=== PATIENT | male | born 1960 | race Caucasian/White ===

== ENCOUNTER → 2024-05-05 06:37 | Outpatient (REF) | payer MEDICARE, SELFPAY | LOC: MRI 3T 06:37 | PROVIDERS: ATTENDING PHYSICIAN Student in an Organized Health Care Education/Training Program | DX: M54.50 Low back pain, unspecified (principal); M79.605 Pain in left leg | CPT/HCPCS: 72148 ==

== ENCOUNTER 2025-06-10 15:41 | Emergency (ER) | payer MEDICARE, SELFPAY ==
[2025-06-10 15:43] VITALS: BP 101/57
[2025-06-10 15:44] VITALS: BP 101/57; BMI 29.3
[2025-06-10 15:47] LABS: Glucose - Point of Care 116 mg/dl (70-99)
[2025-06-10 15:57] LABS: Hematocrit 37.8 % (39.0-52.0); Hemoglobin 13.5 g/dL (13.0-18.0); Mean Corp Hgb Conc. 35.7 g/dL (33.0-37.0); Mean Corpuscular Volume 87.3 fL (80.0-94.0); Nucleated Red Blood Cells % 0 % (-); Platelet Count 223 10^3/uL (130-400); Red Cell Dist. Width 11.6 % (11.5-14.5)
[2025-06-10 16:00] VITALS: BP 103/63
[2025-06-10 16:23] LABS: ALT (SGPT) 27 U/L (0-50); AST (SGOT) 32 U/L (17-59); Albumin 4.1 g/dl (3.5-5.0); Alkaline Phosphatase 74 U/L (38-126); Blood Urea Nitrogen 14 mg/dl (9-20); Calcium 9.4 mg/dl (8.4-10.2); Carbon Dioxide 24 mmol/L (22-30); Chloride 105 mmol/L (98-107); Estimated Creatinine Clearance 86 ml/min; Glucose 116 mg/dl (70-99); Potassium 3.7 mmol/L (3.5-5.1); Sodium 136 mmol/L (135-145); Total Protein 6.8 g/dl (6.3-8.2); Troponin I < 0.012 ng/ml; eGFR > 60.00
[2025-06-10 16:30] VITALS: BP 108/61
[2025-06-10 17:00] VITALS: BP 110/68
--- NOTE | 2025-06-10 17:24 | ED.GENMED ---
History of Present Illness
General
Chief Complaint: Fainting/Passed Out
Source: patient and spouse
Exam Limitations: none
Time Seen by Provider: 06/10/25 16:23
Nursing documentation reviewed up to this point in time: agreed with
History of Present Illness
History of Present Illness:
64-year-old male with no significant chronic medical issues presents to the ER with his for evaluation after syncope and collapse with head strike. Patient reports that he just returned from a trip to [place] and sleep has been poor over the
past 48 hours and so he was very exhausted this morning. He says he had a couple coffee in the morning and went to a movie around noon and had some popcorn but that was all he had to eat today. He said he was hungry but wanted to get a workout
again at the [facility] and so he went for a 25-minute swim after the movie. After his swim he went into the sauna. He has been rehabbing his left knee due to arthritis and decided that because he was alone in the sauna he would do some of his PT
exercises and there. Afterwards he went into the shower and while he was taking a shower he felt lightheaded and passed out. He hit the back of his head on the floor and sustained a laceration. EMS was called to bring him to the hospital. He
says that he did have some transient paresthesias in his extremities but did not have any chest pain, palpitations, shortness of breath and denies any symptoms here in the ER. He says he has some mild pain in his head and neck after the fall as
well as some soreness in his left knee but denies any other acute complaints. He denies any known cardiac history.
Review of Systems
Review of Systems
All Other Systems: ROS reviewed and negative except as documented in HPI and ROS
Constitutional: Denies fever
Respiratory: Denies trouble breathing
Cardiac: Reports syncope; Denies chest pain
ABD/GI: Denies abdominal pain, nausea or vomiting
: Denies flank pain
Musculoskeletal: Reports joint pain and neck pain; Denies back pain
Neurological: Reports headache and other (Transient paresthesias); Denies dizzy, weakness or numbness
Phy Exam
Physical Exam
Physical Exam:
General: Awake, alert, oriented x3; no acute distress
Head: Normocephalic, patient has approximately 3 cm roughly linear laceration on the left occipital scalp
Eyes: Conjunctiva normal, pupils equal round and reactive to light bilaterally
Throat: Airway intact, handling secretions
Neck: Trachea midline, no cervical spine tenderness
Back: Minor abrasion to the right posterior shoulder but no tenderness in this area, no other signs of trauma to the back or flank and no tenderness of the thoracic or lumbar spine
Lungs: Clear to auscultation bilaterally, no wheezing, rales, rhonchi
Heart: Regular rate and rhythm, no murmurs, gallops, or rubs; no chest wall tenderness
Abd: Soft, non distended, nontender
Neuro: Cranial nerves grossly intact, speech fluid, motor and sensory grossly intact
Extremities: Patient has some mild swelling and tenderness of the lateral and medial joint line in the left knee but no instability, good range of motion; rest extremities are atraumatic
Scores
Heart Failure Risk
Heart Failure Risk Score: Not Applicable
Heart Score for Chest Pain Patients
STEMI patient?: Not applicable
Withdrawal Assessment of Alcohol
Withdrawal Assessment Completed?: Not applicable
Course
Orders/Labs/Results
Orders:
Orders
06/10/25 15:48
Electrocardiogram (*1) Urgent
Reason for Study: Syncope
EKG- Treatment ONCE
06/10/25 15:49
CMP [Comprehensive Metabolic Panel] Urgent
Complete Blood Count/With Diff Urgent
Troponin I Urgent
06/10/25 17:23
CT Cervical Spine W/o Iv Contr Urgent
Comment:
Reason For Exam: fall with headstrike, neck pain
CT Head W/o Iv Contrast Urgent
Comment:
Reason For Exam: syncope and collapse with occiptal headstrike
CR Knee - Left 4 Or More View* Urgent
Comment:
Reason For Exam: left knee pain s/p fall
06/10/25 17:24
0.9% Sodium Chloride 500 ml [Nss] 500 ml IV BOLUS
06/10/25 17:33
Lidocaine/Epinephrine/Tetracai [Let Topical Anesthetic Gel] 3 ml .ROUTE .STK-MED ONE
06/10/25 17:34
Lidocaine/Epinephrine/Tetracai [Let Topical Anesthetic Gel] 3 ml TOPICAL NOW STA
Abnormal Lab Results
06/10/25 06/10/25
15:46 15:49
RBC 4.33 L 10^6/uL
(4.70-6.10)
Hct 37.8 L %
(39.0-52.0)
MCH 31.2 H pg
(27.0-31.0)
MPV 10.6 H fL
(7.4-10.4)
Glucose 116 H mg/dl
(70-99)
POC Glucose 116 H mg/dl
(70-99)
06/10/25 15:49
06/10/25 15:49
Vital Signs
Initial and Last Documented VS:
Initial Vital Signs
Pulse Resp BP Pulse Ox
79 20 101/57 99
06/10/25 15:43 06/10/25 15:43 06/10/25 15:43 06/10/25 15:43
Last Documented Vital Signs
Temp Pulse Resp BP Pulse Ox
36.4 C 70 11 115/71 99
06/10/25 15:44 06/10/25 17:30 06/10/25 17:30 06/10/25 17:30 06/10/25 17:30
Procedures
Laceration Closure
Scalp:
Status of Wound: clean
Size of Wound in cm: 3
Description of Wound Edges: sharp
Preparation: cleaned with saline
Anesthesia: Topical-LET
Revision/Debridement: routine- no revision
Type of Closure: single layer closure
Skin Closure Material: skin mikie
Number of sutures: 4
MDM/Problems Addressed
Differential Diagnosis Includes:
Syncope: Vasovagal, dehydration, hypoglycemia, dysrhythmia/cardiac event considered less likely
Knee pain: Sprain, ligamentous/meniscus injury, fracture
Headache/neck pain: Contusion, concussion, intracranial bleed, cervical spine injury
MDM/Problems Addressed:
64-year-old male presents for evaluation after syncope and collapse�he did not have much to eat today, did a full workout as well as some exercises in the sauna and then subsequently passed out in the shower. He did hit his head and has a
laceration on the scalp and some minor knee pain since. Exam is as above. EKG shows sinus rhythm with no acute ischemic changes. Labs sent in triage including a CBC and a CMP unremarkable. Troponin undetectable. Will check CT of the head and
cervical spine. Check x-ray of the knee. Patient reports tetanus is up-to-date. Will need to repair laceration. Reassess after the above.
CT of the head and cervical spine negative for any acute intracranial pathology or cervical spine fracture although he does have a scalp hematoma. X-ray of the knee no fracture or dislocation. Suspect likely sprain. Advised regarding RICE.
Referred to orthopedic for outpatient follow-up. This laceration was repaired using mikie as documented procedure note. Spoke about care and follow-up plan for staple removal. At this point stable for discharge. All questions answered.
*Radiology
Radiology exam reviewed: radiology read reviewed
*Pulse Oximetry
SaO2: 99
Oxygen Mode of Delivery: Room air
Patient hypoxic: no (99%)
*EKG
Interpreted by ED Provider?: Yes
Heart Rate: 74
Rate: normal
Rhythm: sinus
[place]: normal axis
Interval: normal interval
QRS Pattern: normal QRS
Ischemia: no ischemia
*Critical Care Note
Total Time (30-74mins, 75-104mins- exclusive of procedures): Not Applicable
Data Reviewed
Source: patient, spouse and ambulance crew
ED Attending Note
-
Portions of this chart may have been created with voice recognition software.� Occasional wrong word or��sound alike� substitutions may have occurred due to the inherent limitations of voice recognition software.
Discharge Plan
Departure
Patient Disposition: Home (Routine Discharge)
Date of Disposition: 06/10/25
Time of Disposition: 18:33
Patient with high blood pressure during this ER visit?: No
Discharge Problem:
Syncope, Laceration of scalp, Knee sprain
Instructions: Syncope (Fainting) (DC), [place] - ED (DC)
Referrals:
Remy Connolly MD [Active, Orthopedics] - Call in 1-3 days for appt
Activity Restrictions/Additional Instructions:
You were seen in the emergency room after passing out and hitting her head. Thankfully no serious head injury was noted on your imaging here. You did have a laceration that was repaired with mikie. The mikie must be removed in 7 days�you can
either return here to the ER or go to your primary doctor to have these removed. You should follow-up with your primary doctor regardless after your ER visit to be reassessed. Make sure that you drink plenty of fluids and eat a good meal this
evening. If you have any return of symptoms or if you develop any new symptoms that are concerning please return to the ER to be reassessed.
Incidental findings requiring follow-up with your primary provider:
- Osteoarthritis in the left knee
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
-Thyroid nodule
Thank you for visiting the Emergency Department at [facility].
1. Please schedule a follow up appointment as directed. Call first thing tomorrow morning to make an appointment.
2. If indicated, please take your medications as instructed and indicated on discharge paperwork.
3. If any of your symptoms do not improve, or persist, or become more severe within 6-12 hours, please return to the emergency department for further care.
4. Please return to the emergency department if you develop a headache, neck pain/stiffness, fever greater than 100.4F, chest pain, shortness of breath, persistent nausea, vomiting, slurred speech, difficulty walking, numbness/tingling, weakness,
signs of infection or any other symptoms that are worrisome to you.
Please call [phone] if you have any questions.
Interventions
Interventions:
*Risk Screen - Suicide Last Done: 06/10/25 15:44
*General Assessment Last Done: 06/10/25 16:26
*Neglect/Abuse Screening Last Done: 06/10/25 15:44
*ED- Fall Risk Assessment Last Done: 06/10/25 16:26
*ED COVID-19 Vaccine History Last Done: 06/10/25 16:26
*ED Influenza Vaccine History Last Done: 06/10/25 16:26
ED- Cardiac Assessment Last Done: 06/10/25 16:26
ED- Neurological Assessment Last Done: 06/10/25 16:26
Discharge Date and Time
Print Language: SPANISH
[2025-06-10 17:30] VITALS: BP 115/71
[2025-06-10] MEDS: NSS 500 IV (17:30)
[2025-06-10] MEDS: LET TOPICAL ANESTHETIC GEL 3 ML TOPICAL (17:35)
== END 2025-06-10 19:01 | disposition home or self-care (01) ==
LOC: EMR 15:41
PROVIDERS: EMERGENCY PHYSICIAN Emergency Medicine; FAMILY PHYSICIAN Student in an Organized Health Care Education/Training Program
DX: R55 Syncope and collapse (principal); S01.01XA Laceration without foreign body of scalp, initial encounter; S83.92XA Sprain of unspecified site of left knee, initial encounter; W19.XXXA Unspecified fall, initial encounter
CPT/HCPCS: 99285; 12002; 96360; 70450; 72125; 73564; 80053; 82962; 84484; 85025; 93005